=== PATIENT | female | born 1970 | race Two or more races ===

== ENCOUNTER 2025-05-24 17:15 | Emergency (ER) | payer MEDICAID, SELFPAY ==
--- NOTE | 2025-05-24 17:19 | EKG_ITS ---
[facility] Test Date: 2025-05-24 Pat Name: NABIL ANDREW Department: Room: - Gender: Female Manager Winter: : 1970 Requested By: ED Temporary Provider Order Number: [id number] Reading MD: ED Temporary Provider Measurements Intervals [place] Rate: 75 P: 46 MS: 151 QRS: 25 QRSD: 94 T: 56 QT: 390 QTc: 437 Interpretive Statements SINUS RHYTHM No previous ECG available for comparison /store/S0/[id number]/ecg/[id number].pdf
[2025-05-24 17:22] VITALS: BP 197/130; BP 198/118; PULSE 72; RESP 20; TEMP 36.7; O2SAT 99
--- NOTE | 2025-05-24 17:48 | XR_ITS ---
Examination: PA lateral chest 2 views Technique: Upright PA lateral chest 2 views Date and time: May 24, 2025, 1755 hrs. Indications: Chest pain back pain shortness of breath beginning 3 days ago. Findings: Normal heart size. Lungs are clear. The osseous structures are intact Impression: No active disease.
--- NOTE | 2025-05-24 17:49 | PD.EDRME ---
Rapid Medical Screening Exam RME Arrival date/time: 05/24/25 17:15 54-year-old female presents to the emergency department for complaints of chest pain Chief Complaint: Chest Pain Vital signs: Vital Signs Temperature 98.1 F 05/24/25 17:22 Pulse Rate 72 05/24/25 17:22 Respiratory Rate 20 05/24/25 17:22 Blood Pressure 197/130 H 05/24/25 17:22 Pulse Oximetry (%) 99 05/24/25 17:22 Oxygen Delivery Method Room Air 05/24/25 17:22
[2025-05-24 18:18] LABS: Basophils # (Auto) 0.1 Thou/mm3 (0.0-0.2); Basophils % (Auto) 1 % (0-2.5); Eosinophils # (Auto) 0.3 Thou/mm3 (0.0-0.5); Eosinophils % (Auto) 3 % (0-10); Hematocrit 36.3 % (36.0-46.0); Hemoglobin 11.5 g/dL (12.0-16.0); Immature Granulocytes Auto 0.03 Thou/mm3 (0.00-0.00); Lymphocytes # (Auto) 3.3 Thou/mm3 (1.0-4.8); Lymphocytes % (Auto) 40 % (10-50); Mean Corpuscular HGB Conc 31.7 g/dl (31.0-37.0); Mean Corpuscular Hemoglobin 26.5 pg (25.0-35.0); Mean Corpuscular Volume 84 fL (80-100); Monocytes # (Auto) 0.4 Thou/mm3 (0.0-0.8); Monocytes % (Auto) 5 % (0-12); Neutrophils # (Auto) 4.1 Thou/mm3 (1.8-7.7); Neutrophils % (Auto) 50 % (37-80); Nucleated Red Blood Cell # 0.00 Thou/mm3 (0.00-0.00); Nucleated Red Blood Cell % 0 /100 WBC (0); Platelet Count 207 Thou/mm3 (140-440); RDW Standard Deviation 46.6 fL (36.4-46.3); Red Blood Count 4.34 Miln/mm3 (4.00-5.20); White Blood Count 8.2 Thou/mm3 (3.6-11.0)
[2025-05-24 18:37] LABS: Alanine Aminotransferase 16 U/L (10-49); Albumin, Serum 4.6 gm/dL (3.5-5.0); Albumin/Globulin Ratio 1.8 (1.2-2.2); Alkaline Phosphatase 88 U/L (46-116); Anion Gap 7 (7-16); Aspartate Amino Transferase 24 U/L (0-34); BUN/Creatinine Ratio 13 Ratio (12-20); Bilirubin,Total 0.3 mg/dL (0.3-1.2); Blood Urea Nitrogen 10 mg/dL (9-23); Calcium 9.4 mg/dL (8.3-10.6); Calcium (Corrected) 9.4 mg/dL (8.5-10.1); Carbon Dioxide 29.1 mMol/L (20.0-31.0); Chloride 107 mMol/L (98-107); Creatinine (Component) 0.8 mg/dL (0.6-1.3); Estimated Creatinine Clearance 82.7 mL/min (>60); Globulin 2.6 gm/dL (2.3-3.5); Glucose 93 mg/dL (74-106); Osmolality,Calculated 283 (275-295); Potassium 4.0 mMol/L (3.4-5.1); Sodium 143 mMol/L (136-145); Total Protein 7.2 gm/dL (5.7-8.2); Troponin I < 0.020 ng/mL (0.0-0.045); eGFR > 60 See Note
--- NOTE | 2025-05-24 23:38 | PD.EDCHEST ---
ED Chest Pain RME/HPI General Chief Complaint: Chest Pain Stated Complaint: CHEST PAIN, BACK PAIN Arrival date/time: 05/24/25 17:15 RME / HPI RME / HPI narrative: 05/24/25 17:15 54-year-old female presents to the emergency department for complaints of chest pain DR. ANDRADE MAIN ED EVALUATION: 54 y/o female with Hx of HTN presents to ED c/o left-sided chest pain that radiates to the back x 3 days. She has not experienced these symptoms in the past. Denies any recent fall or injury. Patient states she is medication compliant. Related Data Home Medications ?Medication ?Instructions ?Recorded ?Confirmed hydrochlorothiazide 25 mg tablet 25 mg PO QAM 02/14/18 02/14/18 Previous Rx's ?Medication ?Instructions ?Recorded diphenoxylate-atropine 2.5 1 tab PO Q6H PRN diarrhea #7 tabs 02/14/18 mg-0.025 mg tablet (Lomotil) simethicone 80 mg tablet 80 mg PO QID #7 tabs 02/14/18 Allergies Allergy/AdvReac Type Severity Reaction Status Date / Time Penicillins Allergy Severe RASH/ITICHI Verified 05/24/25 17:18 NG Review of Systems Review of Systems Systems Reviewed: All systems reviewed, normal except as documented Past Medical History Past Medical History CARDIAC: Positive Cardiac Disorders (htn) and Hypertension ED Exam Narrative Physical exam: Generally patient is alert and in no obvious distress, chest shows reproducible chest tenderness to palpation to the left upper chest and left posterior back. No crepitance or subcu air. Heart regular rate and rhythm, lungs clear to auscultation equal laterally, abdomen soft bowel sounds present nondistended nontender Course Course Course Narrative: CXR was ordered for determining the etiology of shortness of breath. Quality Measures none Orders Category Date Time Status EKG (ED ONLY) *Do not use* NOW Care 05/24/25 17:19 Completed EKG (ED Only) Stat Exams 05/24/25 17:19 Ordered XR chest 2V Stat Exams 05/24/25 17:48 Completed CBC Stat Lab 05/24/25 17:56 Completed Comprehensive Metabolic Panel Stat Lab 05/24/25 17:56 Completed Troponin I Stat Lab 05/24/25 17:56 Completed Ketorolac Inj [Toradol Inj] Med 05/24/25 23:38 Discontinued 60 mg IM X1 ONE Vital Signs Vital signs: Vital Signs Temperature 98.1 F 05/24/25 17:22 Pulse Rate 72 05/24/25 17:22 Respiratory Rate 20 05/24/25 17:22 Blood Pressure 197/130 H 05/24/25 17:22 Pulse Oximetry (%) 99 05/24/25 17:22 Oxygen Delivery Method Room Air 05/24/25 17:22 Chest Pain MDM Narrative MDM Narrative:: Scribe Attestation: I, Colleen Leiva, am scribing for and in the presence of Dr. Andrade. Provider Notation: Although this document has been carefully reviewed, there may still be some phonetic and other typographical errors. These errors are purely grammatical due to imperfections in the software program and should not be construed in any way to compromise the substance of the patient's medical care during this visit. This reproducible musculoskeletal chest pain has been going on for 3 days. Troponin is not elevated. Heart score is 1. Chest x-ray is normal. EKG shows normal sinus rhythm at a rate of 75 without ischemic change or ectopy. Patient received Toradol 60 mg IM. Patient is to take Tylenol and/or ibuprofen as needed for pain. Follow-up with her doctor as needed. Return to ER as needed or if condition worsens. I do not believe this to be ischemic heart pain. I interpreted all labs. Patient has a history of hypertension. Blood pressure was elevated here in the emergency room. It was stressed to the patient the need for her to go home and take her normal high blood pressure medication as prescribed. Patient data External records reviewed:: [facility] previous records (No recent ED records available for review.) Clinical information provided by:: patient Social determinants that could affect healthcare access:: none Patient has the following chronic illnesses:: HTN How is presenting disease/condition affected by chronic disease/condition?: exacerbated by Evaluation data The following diagnostics were reviewed and interpreted by me:: lab results, radiology exam(s) and EKG tracing(s) Lab and/or radiology exams considered but not ordered:: None Interpretation Summary: RADIOLOGY Chest X-Ray: Findings: Normal heart size. Lungs are clear. The osseous structures are intact Impression: No active disease. Medications / Prescriptions Medications or Prescriptions considered but not ordered:: None Medication administrations:: Medication Administration History Discontinued Medications Ketorolac Tromethamine (Ketorolac Inj 60 Mg/2 Ml Vial) 60 mg IM X1 ONE Stop: 05/24/25 23:39 See above if any Consultations Consultation(s) initiated? (list below): No Diagnosis Chest Pain Differential Diagnosis: stable angina, unstable angina pectoris, atypical chest pain, st elevation myocardial infarction, costochondritis, chest pain and biliary colic Most likely diagnosis given after review of the tests above:: None Admission Indicated Admission indicated?: not indicated Explain why admission is indicated or not indicated:: Patient does not meet admission criteria Admission Request Was there a request for admission?: No Disposition Plan Disposition Plan: Discharge Discharge Attestation Discharge Attestation: The patient and all family members were given an opportunity to ask questions and understood the discharge instructions. Discharge instructions specifically effects, indications for sooner follow up or return to the emergency department, and the expected course of current diagnosis. Patient condition: Stable Discharge Plan Plan Patient Disposition: HOME (Self Care) Prescriptions/Referrals Prescriptions/Med Rec: No Action hydrochlorothiazide 25 mg Tablet 25 mg PO QAM diphenoxylate-atropine [Lomotil] 2.5-0.025 mg tablet 1 tab PO Q6H PRN (Reason: diarrhea) Qty: 7 0RF simethicone 80 mg tablet 80 mg PO QID Qty: 7 0RF Rx Instructions: administer after meals and at bedtime Referrals: Shivani Hooper FNP-C [Primary Care Provider] - In 1 week Problem List Clinical Impression: Musculoskeletal pain, Poorly-controlled hypertension Patient/Caregiver Discharge Instructions Additional Instructions: Your heart is not checking out to be abnormal tonight. You may take Tylenol and/or ibuprofen as needed for pain. You must take your blood pressure medication as prescribed. Print Language: Amharic Stand Alone Forms: Rosa Award Info., Patient Portal Info Letter
[2025-05-24] MEDS: KETOROLAC INJ 60 MG/2 ML VIAL IM (23:46)
[2025-05-24 23:58] VITALS: BP 165/67; PULSE 75; RESP 18; TEMP 36.6; O2SAT 99
== END 2025-05-24 23:59 | disposition home or self-care (01) ==
PROVIDERS: Nurse Practitioner Primary Care; Emergency Provider Emergency Medicine; PCP Nurse Practitioner Family
DX: M79.18 Myalgia, other site (principal); R07.89 Other chest pain; I10 Essential (primary) hypertension
CPT/HCPCS: 36415; 71046; 80053; 84484; 85025; 93005; 96372; 99283; J1885